=== PATIENT | female | born 1990 | race Caucasian/White ===

== ENCOUNTER → 2024-12-04 | Outpatient (CLI) | payer BC, SELFPAY ==
[2024-12-04 07:52] LABS: Collection Type, Urine Clean Catch
[2024-12-04 08:11] LABS: Basophils # (Auto) 0.1 Thou/mm3 (0.0-0.2); Basophils % (Auto) 1 % (0-2.5); Eosinophils # (Auto) 0.5 Thou/mm3 (0.0-0.5); Eosinophils % (Auto) 6 % (0-10); Hematocrit 36.3 % (36.0-46.0); Hemoglobin 12.5 g/dL (12.0-16.0); Immature Granulocytes % (Auto) 0 % (0-0); Immature Granulocytes Auto 0.01 Thou/mm3 (0.00-0.00); Lymphocytes # (Auto) 1.2 Thou/mm3 (1.0-4.8); Lymphocytes % (Auto) 17 % (10-50); Mean Corpuscular HGB Conc 34.4 g/dl (31.0-37.0); Mean Corpuscular Hemoglobin 30.7 pg (25.0-35.0); Mean Corpuscular Volume 89 fL (80-100); Monocytes # (Auto) 0.5 Thou/mm3 (0.0-0.8); Monocytes % (Auto) 7 % (0-12); Neutrophils # (Auto) 4.8 Thou/mm3 (1.8-7.7); Neutrophils % (Auto) 69 % (37-80); Nucleated Red Blood Cell % 0 /100 WBC (0); Platelet Count 142 Thou/mm3 (140-440); RDW Standard Deviation 41.3 fL (36.4-46.3); Red Blood Count 4.07 Miln/mm3 (4.00-5.20)
[2024-12-04 08:18] LABS: Bacteria,Urine Rare; Bilirubin,Urine Negative (Negative); Blood,Urine Negative (Negative); Clarity,Urine Clear (Clear/Hazy); Color,Urine Lt-Yellow (Lt Yel-Yel); Culture Indicated,Urine Not Indicated; Glucose, Urine Negative (Negative); Ketones,Urine Negative (Negative); Leukocyte Esterase,Urine Negative (Negative); Nitrite,Urine Negative (Negative); PH,Urine 7.5 (5.0-7.0); Protein,Urine Negative (Neg - Trace); RBC,Urine 2 /hpf (0-3); Specific Gravity,Urine 1.018 (1.001-1.035); Squamous Epithelial Cell,Urine 6 /hpf (0-5); Urobilinogen,Urine Negative mg/dL (0.0-1.0); WBC,Urine 1 /hpf (0-5)
[2024-12-04 08:25] LABS: Alanine Aminotransferase 12 U/L (10-49); Albumin, Serum 4.7 gm/dL (3.5-5.0); Albumin/Globulin Ratio 2.2 (1.2-2.2); Alkaline Phosphatase 60 U/L (46-116); Anion Gap 8 (7-16); Aspartate Amino Transferase < 10 U/L (0-34); BUN/Creatinine Ratio 15 Ratio (12-20); Blood Urea Nitrogen 12 mg/dL (9-23); Calcium 9.6 mg/dL (8.3-10.6); Calcium (Corrected) 9.6 mg/dL (8.5-10.1); Carbon Dioxide 27.4 mMol/L (20.0-31.0); Cardiac Risk Estimate 2.3 RATIO (3.7-5.6); Chloride 107 mMol/L (98-107); Cholesterol 138 mg/dL (132-200); Creatinine (Component) 0.8 mg/dL (0.6-1.3); Globulin 2.1 gm/dL (2.3-3.5); Glucose 93 mg/dL (74-106); HDL Cholesterol 61 mg/dL (40-60); LDL Cholesterol,Calculated 68 mg/dL (0-130); Osmolality,Calculated 282 (275-295); Potassium 4.6 mMol/L (3.4-5.1); Sodium 142 mMol/L (136-145); Total Protein 6.8 gm/dL (5.7-8.2); Triglycerides 44 mg/dL (30-150); eGFR > 60 See Note
== END | disposition home or self-care (01) ==
LOC: COPL 07:20
PROVIDERS: PCP Family Medicine; Referring Provider Nurse Practitioner Family; Visit Provider Nurse Practitioner Family
DX: Z30.42 Encounter for surveillance of injectable contraceptive (principal)
CPT/HCPCS: 36415; 80053; 80061; 81001; 84443; 85025

== ENCOUNTER → 2025-02-16 | Outpatient (CLI) | payer BC, SELFPAY ==
--- NOTE | 2025-02-16 08:20 | XR_ITS ---
Examination: Knee, right , 3 views Technique: Knee AP, lateral, oblique 3 views Date and time of exam: February 16, 2025 0834 hours INDICATIONS: Right knee pain beginning 2 weeks ago. FINDINGS: Mild to moderate narrowing medial joint space Mild osteoarthritis patellofemoral joint Small knee effusion No fracture IMPRESSION: Mild to moderate narrowing medial joint space
== END | disposition home or self-care (01) ==
LOC: CDIM 08:07
PROVIDERS: PCP Nurse Practitioner Family; Referring Provider Registered Nurse; Visit Provider Registered Nurse
DX: M25.861 Other specified joint disorders, right knee (principal)
CPT/HCPCS: 73562

== ENCOUNTER → 2025-04-06 | Outpatient (CLI) | payer BC, SELFPAY ==
[2025-04-06 17:06] LABS: Influenza A Ag Negative; Influenza B Ag Negative
[2025-04-06 17:07] LABS: COVID-19 Antigen (In-House) Negative (Negative)
== END | disposition home or self-care (01) ==
LOC: COPL 15:34
PROVIDERS: PCP Family Medicine; Referring Provider Nurse Practitioner Family; Visit Provider Nurse Practitioner Family
DX: J20.9 Acute bronchitis, unspecified (principal)
CPT/HCPCS: 87502; 87811

== ENCOUNTER → 2025-04-28 | Outpatient (CLI) | payer BC, SELFPAY ==
--- NOTE | 2025-04-28 08:25 | XR_ITS ---
Examination: PA lateral chest 2 views TECHNIQUE: Upright PA lateral chest 2 views Date and time: 12/29/2024 0835 hours INDICATIONS: Coughing 2 weeks. FINDINGS: Normal heart size. Lungs are clear. Osseous structures are intact. IMPRESSION: No active disease Moderate pectus deformity
[2025-04-28 08:59] LABS: Quantiferon-TB* See Sep Rpt
[2025-04-28 11:59] LABS: Cocci Serology, IgM Negative (Negative)
[2025-04-30 14:04] LABS: Cocci Serology, IgG Negative (Negative)
== END | disposition home or self-care (01) ==
LOC: CDIM 08:22 → COPL 08:40
PROVIDERS: PCP Family Medicine; Referring Provider Student in an Organized Health Care Education/Training Program; Visit Provider Radiology Diagnostic Radiology
DX: R05.9 Cough, unspecified (principal)
CPT/HCPCS: 36415; 71046; 86331; 86480; 86635

== ENCOUNTER 2025-10-08 22:50 | Inpatient (IN) | payer BC, SELFPAY ==
[2025-10-08] VITALS (14 sets, daily range): BP systolic 109–132; BP diastolic 67–70; PULSE 104–128; RESP 16–97; TEMP 36.8; O2SAT 96–97; BMI 29.9
[2025-10-08 23:51] LABS: Basophils # (Auto) 0.0 Thou/mm3 (0.0-0.2); Basophils % (Auto) 0 % (0-2.5); Eosinophils # (Auto) 0.2 Thou/mm3 (0.0-0.5); Eosinophils % (Auto) 2 % (0-10); Hematocrit 34.0 % (36.0-46.0); Hemoglobin 11.8 g/dL (12.0-16.0); Immature Granulocytes Auto 0.09 Thou/mm3 (0.00-0.00); Lymphocytes # (Auto) 1.4 Thou/mm3 (1.0-4.8); Lymphocytes % (Auto) 19 % (10-50); Mean Corpuscular HGB Conc 34.7 g/dl (31.0-37.0); Mean Corpuscular Hemoglobin 31.1 pg (25.0-35.0); Mean Corpuscular Volume 90 fL (80-100); Monocytes # (Auto) 0.6 Thou/mm3 (0.0-0.8); Monocytes % (Auto) 8 % (0-12); Neutrophils # (Auto) 5.1 Thou/mm3 (1.8-7.7); Neutrophils % (Auto) 70 % (37-80); Nucleated Red Blood Cell # 0.00 Thou/mm3 (0.00-0.00); Nucleated Red Blood Cell % 0 /100 WBC (0); Platelet Count 173 Thou/mm3 (140-440); RDW Standard Deviation 42.2 fL (36.4-46.3); Red Blood Count 3.79 Miln/mm3 (4.00-5.20); White Blood Count 7.3 Thou/mm3 (3.6-11.0)
[2025-10-09] VITALS (159 sets, daily range): BP systolic 84–129; BP diastolic 50–77; PULSE 65–112; RESP 12–20; TEMP 36.3–36.7; O2SAT 85–100
[2025-10-09 00:24] LABS: Syphilis Nonreactive (Nonreactive)
[2025-10-09] MEDS: Ampicillin Inj 2,000 MG in SODIUM CHLORIDE 0.9% (POP) 100 ML 200 MG IV (00:40)
[2025-10-09] MEDS: RINGERS LACTATED 1000 ML 1,000 ML 100 ML IV ×3 (00:43→17:04)
[2025-10-09 02:27] LABS: Amphetamine/Metham Scrn,Ur OB Negative (Negative); Benzoylecgonine Screen, Ur OB Negative (Negative); Opiate Screen,Urine OB Negative (Negative); THC Screen,Urine OB Negative (Negative)
--- NOTE | 2025-10-09 05:03 | PD.LDPN ---
Documentation for date of: 10/09/25 OB Labor Progress Note Pelvic Exam Amniotic membrane status: Ruptured Comments: See RN notes Contractions Monitor mode: External Contraction frequency: 5-7 Contraction intensity: Mild Status status: Category l Assessment and Plan Comments: Anticipate
[2025-10-09] MEDS: Ampicillin Inj 1,000 MG in SODIUM CHLORIDE 0.9% (Popper) 50 ML 50 MG IV ×3 (05:10→13:23)
[2025-10-09] MEDS: OXYTOCIN in NS 30 units 30 UNIT/500 ML BAG IV (14:25)
[2025-10-09] MEDS: ceFAZolin/D5W 2 GM IV 2 GM/100 ML BAG IV (17:04)
[2025-10-09] MEDS: FAMOTIDINE INJ 10 MG/ML VIAL 2 ML 20 MG IV (17:04)
--- NOTE | 2025-10-09 17:23 | PD.LDPN ---
Documentation for date of: 10/09/25 OB Labor Progress Note Pelvic Exam Dilation (cm): 4 Effacement (%): 50 station: -3 Amniotic membrane status: Ruptured Contractions Monitor mode: External Contraction frequency: 1-4 Contraction pattern: Tetanic Contraction intensity: Moderate Status status: Category ll Comments: Recurrent late decelerations Assessment and Plan Comments: Delivery Informed consent obtained. Pt made aware of the risks, complications, alternatives and benefits of the proposed procedure and she agrees.
--- NOTE | 2025-10-09 17:25 | ESOP_ITS ---
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 Date of procedure: 10/09/25 Procedure Performed: Primary Low Transverse C/S via Pfannesteil skin incision Indication: IUP 37w1d Labor Category 2 tracing Recurrent Late Decelerations Failure to Progress in Labor Pre-Op diagnosis: IUP 37w1d Labor Category 2 tracing Recurrent Late Decelerations Failure to Progress in Labor Post-Op diagnosis: IUP 37w1d Labor Category 2 tracing Recurrent Late Decelerations Failure to Progress in Labor Anesthesia type: Spinal Procedure description: After proper informed consent was obtained and the patient was made aware of the risks, complications, alternatives and benefits of the proposed procedure she was taken to the operating room where she underwent induction of spinal anesthesia. She was prepped and draped in the usual sterile fashion. A timeout was performed.? A Pfannenstiel skin incision was made with the scalpel and carried through to the underlying layer of fascia with the Bovie. The fascia was nicked in the midline incision and the incision was extended bilaterally with the Bovie. The inferior aspect of the fascial incision was grasped with Sandy clamps elevated and the underlying rectus muscle dissected off with the Bovie. The superior aspect the fascial incision was grasped with Sandy clamps elevated and the underlying rectus muscle dissected off with the Bovie. The rectus muscles were in the midline. The peritoneum was grasped between 2 Reaves clamps and entered sharply with the Metzenbaum scissors. The peritoneum was extended superiorly and inferiorly with good visualization of the bladder. The vesicouterine peritoneum was incised transversely and the bladder flap created digitally. A Marshall blade was inserted. A low transverse incision was made in the uterus with a scapel and the incision was extended digitally. The 's head delivered and the mouth and nose were suctioned with the bulb suction. The shoulder and body delivered atraumatically. The cord was clamped after 30 second delayed cord clamping and the cord was cut.? The male was handed off to the waiting Pediatric staff, cord blood was collected for lab testing. The placenta was removed complete and intact. The uterus was exteriorized and sarah beth ared of all clots and debris. The uterine incision was closed with #1-0 chromic catgut suture in a running interlocking fashion. A second layer of the same suture was used to imbricate the first layer and obtain excellent hemostasis. The vesicouterine peritoneum was closed with 2-0 chromic catgut suture in a running fashion. The firm uterus was returned to the abdomen. The gutters were cleared of all clots and debris. The peritoneum was closed with 0 chromic catgut suture in running fashion. The rectus muscle was closed with 0 chromic catgut suture. The fascia was closed with 0 Vicryl beginning at each angle and ending in the center in a running fashion. The subcutaneous tissue was irrigated with warmed normal saline solution and found to be hemostatic. The subcutaneous tissue was closed with 2-0 chromic catgut suture in a running fashion. The skin was closed with 4-0 Monocryl. A Dermabond Prineo dressing was applied and a sterile pressure dressing was applied.? She tolerated the procedure well. Counts were correct. I discussed with the patient the nature of her condition, intraoperative findings and expectation for recovery all? questions answered. Specimen: none Estimated blood loss (ml): 800 Findings: Live male APGARS 8 and 9 Weight 7 lbs 0 oz Amniotic fluid clear Placenta removed complete and intact Uterus and ovaries and tubes grossly wnl. Complications: none Surgical staff Dr Mack , Surgeon Catrachito Duval, CEMENT GUN OPERATOR Carlos Manuel RIVERA Diagnosis Problem List Completed Was Problem List Reviewed/Reconciled?: Yes
--- NOTE | 2025-10-09 17:29 | PD.LDDS ---
DS: Providers Provider Date of admission: 10/08/25 23:32 Primary care physician: Physician No Primary/Family Admitting Provider: Griffin Mack MD Attending Provider on Admission: Griffin Mack MD Attending Provider on DC: Griffin Mack MD Discharging Provider: Griffin Mack MD DS: Diagnosis Problem List Completed Was Problem List Reviewed/Reconciled?: Yes Summary/Hosp Course Peripartum Data Procedures: Procedures Operation Date: 10/09/25 17:30 <No data on this case meets the specified criteria> Time Spent with Patient Time attestation: Total time spent providing and/or coordinating discharge services: Exam Vital Signs Temp Pulse Resp BP Pulse Ox O2 Del Method 98.0 F 77 18 109/57 L 92 L Aerosol Mask 10/09/25 12:00 10/09/25 17:03 10/09/25 12:00 10/09/25 17:03 10/09/25 17:18 10/08/25 22:54 Discharge Plan Plan Patient Disposition: HOME (Self Care) Patient condition on transfer: Stable Prescriptions/Referrals Prescriptions/Med Rec: New hydrocodone-acetaminophen 5-325 mg tablet 1 tab PO Q6H MDD 4 PRN (Reason: pain) Qty: 20 0RF ibuprofen 600 mg tablet 600 mg PO Q6H PRN (Reason: pain) Qty: 30 0RF Continued vit-iron fum-folic ac [ Tablet] 28 mg iron- 800 mcg tablet 1 tab PO QDAY Discontinued acetaminophen 325 mg tablet 325 mg PO Q6H PRN (Reason: pain) Referrals: No Primary/Family,Physician [Primary Care Provider] Patient/Caregiver Discharge Instructions Discharge Activity: activity as tolerated Other Discharge Activity Instructions:: Follow up office 1 week. Education Materials: Breast Care After , After a , C Section Dc Print Language: Setswana Stand Alone Forms: Kristan Award Info., Patient Portal Info Letter Discharge Order Discharge Orders: Discharge (Routine); Ordered 10/11/25 Ordered By: Griffin Mack Planned Discharge Date 10/11/25
[2025-10-09] MEDS: OXYTOCIN in NS 20 units 20 UNIT/1,000 ML BAG 125 UNIT IV (19:24)
[2025-10-09] MEDS: KETOROLAC INJ 30 MG/ML VIAL IVP (19:25)
[2025-10-10 00:48] LABS: Basophils # (Auto) 0.0 Thou/mm3 (0.0-0.2); Basophils % (Auto) 0 % (0-2.5); Eosinophils # (Auto) 0.0 Thou/mm3 (0.0-0.5); Eosinophils % (Auto) 0 % (0-10); Hematocrit 29.3 % (36.0-46.0); Hemoglobin 10.2 g/dL (12.0-16.0); Immature Granulocytes Auto 0.05 Thou/mm3 (0.00-0.00); Lymphocytes # (Auto) 0.6 Thou/mm3 (1.0-4.8); Lymphocytes % (Auto) 6 % (10-50); Mean Corpuscular HGB Conc 34.8 g/dl (31.0-37.0); Mean Corpuscular Hemoglobin 31.3 pg (25.0-35.0); Mean Corpuscular Volume 90 fL (80-100); Monocytes # (Auto) 0.7 Thou/mm3 (0.0-0.8); Monocytes % (Auto) 6 % (0-12); Neutrophils # (Auto) 9.7 Thou/mm3 (1.8-7.7); Neutrophils % (Auto) 87 % (37-80); Nucleated Red Blood Cell # 0.00 Thou/mm3 (0.00-0.00); Nucleated Red Blood Cell % 0 /100 WBC (0); Platelet Count 146 Thou/mm3 (140-440); RDW Standard Deviation 40.9 fL (36.4-46.3); Red Blood Count 3.26 Miln/mm3 (4.00-5.20); White Blood Count 11.2 Thou/mm3 (3.6-11.0)
[2025-10-10 03:22] VITALS: BP 98/62; PULSE 74; RESP 14; TEMP 36.8; O2SAT 96
[2025-10-10] MEDS: RINGERS LACTATED 1000 ML 1,000 ML 100 ML IV (04:36)
[2025-10-10] MEDS: KETOROLAC INJ 30 MG/ML VIAL IVP (05:06)
[2025-10-10 08:00] VITALS: BP 96/60; PULSE 78; RESP 16; TEMP 36.7; O2SAT 97
[2025-10-10] MEDS: DOCUSATE SOD 100 MG CAPSULE PO (08:16)
[2025-10-10] MEDS: ENOXAPARIN SOD INJ 40 MG/0.4 ML SYRINGE SC (08:16)
--- NOTE | 2025-10-10 09:14 | ESPR_ITS ---
RE: BRONSON VICTOR : 1990 DATE OF SERVICE: 10/10/2025 SUBJECTIVE: Postoperative day #1, patient denies any problem or complaints. She is voiding, she is ambulating, she is tolerating diet, she is passing flatus. She denies any excessive vaginal bleeding. She denies any dizziness or lightheadedness. She denies any chest pain, palpitations, shortness of breath, or lower extremity pain. OBJECTIVE VITAL SIGNS: Blood pressure is 98/62, heart rate 74, respirations 14, temperature is 98.3, pulse oximetry is 96 % on room air. LUNGS: Clear to auscultation bilaterally. HEART: Regular rate and rhythm. ABDOMEN: Dressing dry and intact. Fundus is firm. EXTREMITIES: Nontender. LABORATORY DATA: Hemoglobin pre-delivery is 11.8, post-delivery is 10.2. ASSESSMENT: Postoperative day #1 status post delivery. PLAN: Remove dressing, DC IV, support, encourage ambulation, possible discharge home tomorrow. DT: 08:27:58 TT: 09:13:00 Ref: [id number] - TID: [id number]
--- NOTE | 2025-10-10 11:36 | PD.LDHP ---
Documentation for date of: 10/10/25 OB Labor/Induct. HPI History of Present Illness : 4 Para: 2 Term pregnancies: 2 pregnancies: 0 Living children: 2 History of Abortions: Spontaneous and Elective: 1 History of Vaginal deliveries: 2 History of sections: No History of : No Date of last menstrual period: 12/31/24 SONY: 10/29/25 Gestational Age (weeks): 37 Gestational Age (days): 1 Gestational age based on last menstrual period: 40 History of present illness: H and P dictated on STAT line #9 in [employer]: [id number] History of Present Adequate Care: No Labs Labs: Positive: Rubella Titre, Negative: RPR, Hepatitis B, HIV, Chlamydia, Gonorrhea and Group Beta Strep and Unknown: Herpes Type 1, Herpes Type 2 and Covid-19 Past Medical History Surgical History SURGICAL: Negative Section Meds Home Medications and Allergies Home Medications ?Medication ?Instructions ?Recorded ?Confirmed ?Type vitamin-ferrous fumarate 1 tab PO QDAY 10/08/25 10/08/25 History 28 mg iron-folic acid 800 mcg tablet ( Tablet) Allergies Allergy/AdvReac Type Severity Reaction Status Date / Time No Known Allergies Allergy Verified 10/08/25 23:22 OB Exam Physical Exam Vital signs: Temp Pulse Resp BP Pulse Ox O2 Del Method 98.3 F 74 14 98/62 96 Room Air 10/10/25 03:22 10/10/25 03:22 10/10/25 03:22 10/10/25 03:22 10/10/25 03:22 10/10/25 03:22 OB Results Labs 10/09/25 23:23 Labs: Short CBC 10/09/25 Range/Units 23:23 WBC 11.2 H D (3.6-11.0) Thou/mm3 Hgb 10.2 L (12.0-16.0) g/dL Hct 29.3 L (36.0-46.0) % Plt Count 146 (140-440) Thou/mm3
[2025-10-10] MEDS: HYDROcodone/APAP 5/325 TABLET 1 TAB PO ×3 (11:54→21:29)
[2025-10-10 12:05] VITALS: BP 101/66; PULSE 83; RESP 16; TEMP 36.8; O2SAT 98
--- NOTE | 2025-10-10 12:26 | ESHP_ITS ---
RE: BRONSON VICTOR : 1990 DATE OF ADMISSION: 10/09/2025 HISTORY OF PRESENT ILLNESS: This is a 34-year-old, 4, para 2-0-1-2, with due date of 10/29 with intrauterine at 37 weeks and 1 day, who presents to labor and delivery complaining of contractions and ruptured membranes. Patient progressed to 4 cm and she developed recurrent late decelerations and underwent a delivery. ALLERGIES: NO KNOWN DRUG ALLERGIES. MEDICATIONS: multivitamin. 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 Father of the baby was not a carrier for these conditions. Gestational thrombocytopenia. FAMILY HISTORY: Son has Kleefstra syndrome, partial deletion of 9q and cousin with autism. OBSTETRIC HISTORY: 2013, 8 week termination of . 2016, 39 week normal vaginal delivery, 8 pound 11 ounce female, no complications. 2020, 39 week normal vaginal delivery, 8 pound 10 ounce male, complicated by son with Kleefstra syndrome. PAST SURGICAL HISTORY: delivery 2016 and 2020. REVIEW OF SYSTEMS: She denies any chest pain, palpitations, cough, fever, flank pain, shortness of breath, or lower extremity pain. PHYSICAL EXAMINATION: VITAL SIGNS: Blood pressure 116/61, heart rate 88, respirations 18, temperature is 98.6, weight 226 pounds. HEENT: Oropharynx and sclerae clear. LUNGS: Clear to auscultation bilaterally. HEART: Regular rate and rhythm. ABDOMEN: Gravid, term size before delivery. PELVIC: See RN notes. EXTREMITIES: Nontender. SKIN: No gross rashes or lesions. NEUROLOGIC: No focal deficits. ASSESSMENT AND PLAN: Intrauterine at 37 weeks and 1 day, labor, failure to progress, category 2 tracing trending toward category 3, status post delivery. PLAN: care. DT: 11:35:28 TT: 12:26:00 Ref: [id number] - TID: [id number] MTDD
[2025-10-10 16:00] VITALS: BP 104/69; PULSE 91; RESP 16; TEMP 37.1; O2SAT 98
[2025-10-10] MEDS: SIMETHICONE 80 MG CHEW PO ×2 (17:31→21:29)
[2025-10-10 20:04] VITALS: BP 114/74; PULSE 89; RESP 16; TEMP 37.2; O2SAT 96
[2025-10-10] MEDS: IBUPROFEN TAB 400 MG TABLET 800 MG PO (20:48)
[2025-10-11 03:30] VITALS: BP 106/63; PULSE 78; RESP 16; TEMP 36.6; O2SAT 95
[2025-10-11] MEDS: HYDROcodone/APAP 5/325 TABLET 1 TAB PO (03:53)
--- NOTE | 2025-10-11 06:26 | ESPR_ITS ---
RE: BRONSON VICTOR : 1990 DATE OF SERVICE: 10/11/2025 SUBJECTIVE: Postoperative day #2. Patient denies any problem or complaints. OBJECTIVE: VITAL SIGNS: Blood pressure 114/74, heart rate 89, respirations 16, temperature is 98.9, pulse oximetry is 96% on room air. LUNGS: Clear to auscultation bilaterally. HEART: Regular rate and rhythm. ABDOMEN: Incision clean and intact. Fundus is firm. EXTREMITIES: Nontender. ASSESSMENT: Postoperative day #2 status post delivery. PLAN: Discharge home. Discharge instructions given. Follow up in the office in 1 week. DT: 06:08:33 TT: 06:25:00 Ref: [id number] - TID: [id number]
[2025-10-11 08:00] VITALS: BP 113/73; PULSE 79; RESP 16; TEMP 36.7; O2SAT 98
[2025-10-11] MEDS: IBUPROFEN TAB 400 MG TABLET 800 MG PO (08:57)
[2025-10-11] MEDS: DOCUSATE SOD 100 MG CAPSULE PO (08:57)
[2025-10-11] MEDS: Milk Of Magnesia Susp 30 ML UDC PO (08:57)
[2025-10-11] MEDS: SIMETHICONE 80 MG CHEW PO (08:57)
[2025-10-11] MEDS: ENOXAPARIN SOD INJ 40 MG/0.4 ML SYRINGE SC (08:57)
--- NOTE | 2025-10-14 07:24 | OBDSUM_ITS ---
Data (Linda) Data Hx Section: No : 4 Term: 2 : 0 Livin Abortions: Spontaneous & Theraputic: 1 Delivery Data (Linda) Labor Data Initiation of labor: Augmentation Induction/Augmentation Agent: Pitocin ROM date: 10/08/25 ROM time: 22:30 Amniotic membrane rupture type: Spontaneous Amniotic fluid description: Clear Delivery Data Onset of labor date: 10/09/25 Onset of labor time: 06:12 delivery date: 10/09/25 delivery time: 17:44 Placenta delivery date: 10/09/25 Placenta delivery time: 17:45 Delivered by: Griffin Mack Delivery nurse: KIERA Sloan nurse: KARLA Media Relations Coordinator at delivery: No Support person(s) at delivery: FAUSTINA Other staff at delivery: Mariaa BIRD CRNA Delivery Method Delivery method: Low Transverse Presentation: Vertex Anesthesia Type Anesthesia Type: Spinal Anesthesia type: Spinal Placenta Placenta delivery description: Manual Removal Cord blood sent to lab: Yes cord blood collection: Cord Blood Type Episiotomy Episiotomy description: None Umbilical Cord cord description: 3 Vessels [place] Data (Linda) [place] Data order: 1 's gender: Male Identification band number: [id number] weight (gms): 6 lb 15.818 oz Weight (pounds): 6 lbs and 15.8 ozs length: 20 in 1 minute: 8 5 minutes: 9
== END 2025-10-11 11:50 | disposition home or self-care (01) | DRG 788 ==
LOC: S4SX 10-09 02:46 → S4NX 10-09 17:24
PROVIDERS: Admitting Provider Specialist; Visit Provider Specialist
PROC: 10D00Z1 Extraction of Products of Conception, Low, Open Approach (ICD-10-PCS; CPT 59514; principal; 2025-10-09 17:15)
DX: O76 Abnormality in fetal heart rate and rhythm complicating labor and delivery (principal); Z37.0 Single live birth; Z3A.37 37 weeks gestation of pregnancy; O62.2 Other uterine inertia
CPT/HCPCS: 36415; 59409; 80307; 84112; 85025; 86780; 86850; 86900; 86901; 94762; A4217; A4314; A4649; C1765; J0290; J0689; J1650; J1885; J2274; J2590; J3490; J7050; J7120; A9270; J2270